=== PATIENT | female | born 1960 | race Caucasian/White ===

== ENCOUNTER → 2017-08-24 | Outpatient (CLI) | payer BC | LOC: M RAD 09:36 | DX: Z12.31 Encounter for screening mammogram for malignant neoplasm of breast (principal) | CPT/HCPCS: 77067 ==

== ENCOUNTER → 2017-11-09 | Outpatient (CLI) | payer BC ==
[2017-11-09 18:11] LABS: RUBELLA IgG QUALITATIVE IMMUNE (IMMUNE)
== END ==
LOC: M SMT 13:57
DX: Z01.84 Encounter for antibody response examination (principal)
CPT/HCPCS: 86762

== ENCOUNTER → 2018-08-22 | Outpatient (CLI) | payer BC ==
[2018-08-22 13:00] LABS: BASO # 0.1 10^3/uL (0.0-0.2); BASO % 0.8 % (0.0-1.0); EOS # 0.1 10^3/uL (0.0-0.50); EOS % 0.8 % (0.0-3.0); HEMATOCRIT 37.3 % (36.0-47.0); HEMOGLOBIN 11.6 g/dl (12.0-15.5); LYMPH # 1.5 10^3/uL (1.5-4.5); LYMPH % 15.9 % (24.0-44.0); MEAN CORPUSCULAR HEMOGLOBIN 19.9 pg (27.0-33.0); MEAN CORPUSCULAR HGB CONC 31.1 g/dl (32.0-36.5); MEAN CORPUSCULAR VOLUME 63.9 fl (80.0-96.0); MONO # 0.6 10^3/uL (0.0-0.8); MONO % 6.6 % (0.0-5.0); NEUTROPHILS # 6.9 10^3/uL (1.8-7.7); NEUTROPHILS % 75.6 % (36.0-66.0); PLATELET COUNT, AUTOMATED 236 10^3/uL (150-450); RED BLOOD COUNT 5.84 10^6/uL (4.00-5.40); WHITE BLOOD COUNT 9.2 10^3/uL (4.0-10.0)
[2018-08-22 13:26] LABS: ALBUMIN 3.7 GM/DL (3.2-5.2); ALT/SGPT 22 U/L (12-78); BILIRUBIN,TOTAL 0.5 MG/DL (0.2-1.0); BLOOD UREA NITROGEN 16 MG/DL (7-18); CALCIUM LEVEL 9.7 MG/DL (8.5-10.1); CARBON DIOXIDE LEVEL 28 MEQ/L (21-32); CHLORIDE LEVEL 103 MEQ/L (98-107); CREATININE FOR GFR 0.72 MG/DL (0.55-1.30); GLOMERULAR FILTRATION RATE > 60.0 (>51); GLUCOSE, FASTING 102 MG/DL (70-100); SODIUM LEVEL 139 MEQ/L (136-145)
== END ==
LOC: M LAB 11:43
PROVIDERS: ATTEND Obstetrics & Gynecology
DX: Z01.818 Encounter for other preprocedural examination (principal); C54.1 Malignant neoplasm of endometrium

== ENCOUNTER → 2018-10-07 | Outpatient (CLI) | payer BC ==
[~2018-10-07] MED LIST: COLA100C5 PO; DEXA4TA PO; LIDO2.5C15 EX; ONDA8TAB8 PO
--- NOTE | 2018-10-07 11:33 | REPMRS ---
Patient History The patient states she had a clinical breast exam in Jun 2018.Patient has history of endometrial cancer at age 57. Family history of breast cancer under age 50 in maternal aunt, breast cancer at age 50 or over in maternal aunt, breast cancer at age 50 or over in maternal aunt, unknown cancer at age 53 in mother. Took hormonal contraceptives for 2 years. 25 pound weight loss since last mammo. Digital Mammo Screening Bilat: October 07, 2018 - Exam #: [id number] Bilateral CC and MLO view(s) were taken. Technologist: Tammie Phillips, Technologist Prior study comparison: August 24, 2017, bilateral digital mammo screening bilat performed at [facility]. July 21, 2015, digital woman screen mammo, performed at [facility]. FINDINGS: The breast tissue is heterogeneously dense. This may lower the sensitivity of mammography. There has been no change in the appearance of the mammogram from the prior studies. There is a moderate amount of residual fibroglandular tissue which is fairly symmetric. There is no interval development of dominant mass, architectural distortion, or clustered microcalcification typical of malignancy. Scattered lymph nodes are seen in the axillae. There are scattered, small, benign calcifications of doubtful clinical significance. 3-D tomosynthesis shows no additional findings. No significant changes when compared with prior studies. Assessment: BI-RADS/ACR category 2 mammogram. Benign Findings. Recommendation Routine screening mammogram in 1 year (for women over age 40). This mammogram was interpreted with the aid of an FDA-approved computer-aided dectection system. A. Negative x-ray reports should not delay biopsy if a dominant or clinically suspicious mass is present. B. Four to eight percent of cancers are not identified by mammography. C. Adenosis and dense breast may obscure an underlying neoplasm. Electronically Signed By: Gurdeep Arango MD 10/07/18 [id number]
== END ==
LOC: M RAD 09:08
PROVIDERS: ATTEND Nurse Practitioner Women's Health
DX: Z12.31 Encounter for screening mammogram for malignant neoplasm of breast (principal); Z80.3 Family history of malignant neoplasm of breast; Z85.40 Personal history of malignant neoplasm of unspecified female genital organ

== ENCOUNTER → 2018-10-09 | Outpatient (CLI) | payer BC ==
[~2018-10-09] MED LIST changes: +CLINDAMYCIN 600 MG/50 ML PREMIX BAG As Ordered ONE; +LIDOCAINE 2% MDV 20 ML VIAL As Ordered ONE; +MIDAZOLAM INJ 2 MG/2 ML VIAL (J2250) As Ordered ONE; +VICO5TAB17 PO; +ceFAZolin 1GM INJ (J0690 PER 500MG) As Ordered ONE; +fentaNYL 100 MCG/2 ML INJECTION (J3010) As Ordered ONE
--- NOTE | 2018-10-30 08:55 | REPIR ---
DATE OF PROCEDURE: 10/09/2018 ATTENDING SURGEON: Dr. Deejay Daley ASSISTANTS: Suni Engel and Marilynn Hess. PREOPERATIVE DIAGNOSIS: Endometrial cancer with positive peritoneal washings. POSTOPERATIVE DIAGNOSIS: Endometrial cancer with positive peritoneal washings. PROCEDURE: Ultrasound-guided right internal jugular vein cannulation, fluoroscopic guided right internal jugular vein tunneled central venous catheter with subcutaneous port placement with a 24 cm length catheter using a Bard PowerPort. INDICATION: The patient is a 57-year-old female with endometrial cancer and peritoneal washings positive for metastatic cancer who requires access for chemotherapy. Risks, benefits and alternative treatment options were discussed with the patient. ANESTHESIA: Local with 20 mL of 2% lidocaine. FLUOROSCOPY TIME: 0.1 minutes. CONTRAST: None. COMPLICATIONS: None. DRAINS: None. SPECIMENS: None. ANTIBIOTICS: 600 mg of clindamycin. IMPLANT: Right internal jugular vein tunneled central venous catheter with subcutaneous port using a 24 cm Bard PowerPort. DESCRIPTION OF PROCEDURE: The patient was taken to the angiography suite, placed supine on the angiography room table and then prepped and draped in a standard surgical fashion. The right internal jugular vein was evaluated with ultrasound, noted to be widely patent, easily compressible and free of thrombus. Ultrasound was used to guide cannulation of the right internal jugular vein with real-time concurrent visualization of the entry of the needle into the right internal jugular vein with a hard copy image preserved. The right internal jugular vein was then sequentially dilated under fluoroscopic guidance and an introducer sheath positioned. The catheter was tunneled from the pocket created in the right chest brought out at the right internal jugular vein puncture site and advanced through the introducer sheath in position with the tip in the superior vena cava right atrial junction. The catheter was attached to the port, which was placed in the pocket. The port was accessed, noted to flush easily and aspirated easily, and then was flushed with heparinized saline. The incisions were then closed using #3-0 Monocryl in inverted interrupted fashion. Steri-Strips and dressings were applied. The patient tolerated the procedure well. All instrument, sponge and needle counts were correct at the end of case. There were no complications. Dr. Daley was present for and directed the entire case. The patient was transferred to the holding area and subsequent discharged in stable condition. RADIOLOGIC SUPERVISION INTERPRETATION: The final fluoroscopic image showed the catheter and port to be in good position and good alignment with no pneumo or hemothorax noted. Ultrasound of the right internal jugular vein showed the internal jugular vein to be widely patent, easily compressible and free of thrombus. Ultrasound was used to guide cannulation with real-time concurrent visualization of the entry of the needle into the right internal jugular vein with a hard copy image preserved.
== END | disposition home or self-care (01) ==
LOC: M IRPRO 07:04
PROVIDERS: ATTEND Internal Medicine Hematology & Oncology
DX: C54.1 Malignant neoplasm of endometrium (principal); C78.6 Secondary malignant neoplasm of retroperitoneum and peritoneum
CPT/HCPCS: 36561; 76937; 77001; C1788; C1894; J0690

== ENCOUNTER → 2019-03-28 | Outpatient (REF) | payer BC ==
[~2019-03-28] MED LIST changes: -CLINDAMYCIN 600 MG/50 ML PREMIX BAG As Ordered ONE; -LIDOCAINE 2% MDV 20 ML VIAL As Ordered ONE; -MIDAZOLAM INJ 2 MG/2 ML VIAL (J2250) As Ordered ONE; +SENN1TAB8 PO; -ceFAZolin 1GM INJ (J0690 PER 500MG) As Ordered ONE; -fentaNYL 100 MCG/2 ML INJECTION (J3010) As Ordered ONE
== END ==
LOC: M SFHCPLAZ 17:09
PROVIDERS: ATTEND Dermatology
DX: D49.2 Neoplasm of unspecified behavior of bone, soft tissue, and skin (principal)

== ENCOUNTER → 2019-10-27 | Outpatient (REF) | payer BC ==
[~2019-10-27] MED LIST changes: +LIDO2.5C15 TOP
== END ==
LOC: M LAB REF 16:17
PROVIDERS: ATTEND Obstetrics & Gynecology
DX: C54.1 Malignant neoplasm of endometrium (principal)

== ENCOUNTER → 2019-11-06 | Outpatient (CLI) | payer BC ==
[~2019-11-06] MED LIST changes: +AMOX500C PO; +GASTROGRAFIN SOLUTION 30ML (Q9963) As Ordered ONE; +ISOVUE-370 76% 100ML VIAL (Q9967) As Ordered ONE; +LEVO500T3 PO; +OMEP-221 PO
--- NOTE | 2019-11-06 19:36 | REP ---
CT chest with IV contrast: History: Endometrial carcinoma. Comparison exam is from August 04, 2019. CT contrast dose: 100 mL of intravenous Isovue 370. CT findings: Preliminary digital health care specialist radiograph is unremarkable. There is no evidence of pleural or pericardial effusion. No hilar or mediastinal mass or adenopathy is observed. There is a right-sided Yyegxy-N-Clld catheter with its tip in the superior vena cava. There is a granulomatous calcification again noted in the left lower lobe. A stable 4 mm fibronodular density is seen in the right lower lobe on page 70 of 108 in series 204 of today's study. This is felt to be unchanged from the August 04, 2019 study. No new pulmonary nodule is seen. No infiltrate or mass lesion is observed. No bony destructive lesion is appreciated. Impression: No active cardiopulmonary disease. Stable 4 mm right lower lobe nodule and old granuloma left lower lobe. Electronically Signed by Bishop Miguel MD 11/06/2019 08:49 P
--- NOTE | 2019-11-06 19:38 | REP ---
CT abdomen and pelvis with IV and oral contrast: History: Endometrial carcinoma. Comparison CT study is from August 04, 2019 and April 30, 2019. CT contrast dose: 100 mL of intravenous Isovue 370. CT findings: A small bilobed cyst is again noted in the left lobe of the liver, 1.6 cm in diameter. This is unchanged. There is a tiny subcentimeter cyst in the right lobe, also unchanged. No liver mass lesion is appreciated. Gallbladder is unremarkable. No splenic lesion is seen. No adrenal abnormalities observed. No abnormalities noted in the pancreas. The kidneys enhance symmetrically and are morphologically intact. A normal appendix seen in the right lower quadrant. Urinary bladder is intact. The uterus is surgically absent. No pelvic adenopathy or mass lesion is seen. No free fluid is noted. No abdominal wall defect is seen. No bony destructive lesion is seen. Impression: There is no evidence of abdominal or pelvic metastasis or adenopathy. Electronically Signed by Bishop Miguel MD 11/06/2019 08:49 P
== END ==
LOC: M RAD 14:53
PROVIDERS: ATTEND Obstetrics & Gynecology
DX: C54.1 Malignant neoplasm of endometrium (principal)
CPT/HCPCS: 71260; 74177; Q9963; Q9967

== ENCOUNTER → 2019-11-17 | Outpatient (CLI) | payer BC ==
[~2019-11-17] MED LIST changes: -GASTROGRAFIN SOLUTION 30ML (Q9963) As Ordered ONE; -ISOVUE-370 76% 100ML VIAL (Q9967) As Ordered ONE; +LIDOCAINE 1% MDV 20ML VIAL As Ordered ONE; +MIDAZOLAM INJ 2MG/2ML VIAL (J2250 PER 1MG) As Ordered ONE; +SENN-80 PO; -SENN1TAB8 PO; +diphenhydrAMINE 50MG/ML VIAL (J1200) As Ordered ONE; +fentaNYL 100 MCG/2 ML INJECTION (J3010) As Ordered ONE
--- NOTE | 2019-11-17 13:55 | IRHP ---
[facility] IR Pre-Procedure H & P General Date of Service: Nov 17, 2019 Procedure: Same Day Surgery Interval History and Physical I have seen the patient and reviewed last H & P performed within 30 days. There is no significant interval change. History of Present Illness Chief Complaint The patient is a 59-year-old female admitted with a reason for visit of Endometrial Ca-No Longer Needed. PRE-PROCEDURE DIAGNOSIS: endometrial cancer HEART: karen rate. LUNGS: normal breathing at rest. ASA Classification ASA Classification: II-Mild systemic disease Mallampati Score: II NPO: Yes Problems with prior sedation: No Obstructive Sleep Apnea: No Plan moderate sedation Allergies Coded Allergies: Sulfa (Sulfonamide Antibiotics) (Verified Allergy, Unknown, 10/31/18) cefadroxil (Verified Allergy, Unknown, 08/29/19) HIVES Home Medications Scheduled Omeprazole (Omeprazole), 40 MG PO BID, (Reported) Discontinued Medications Amoxicillin (Amoxicillin), 2 CAP PO BID, (Reported) Discontinued Reason: Pt states not taking Levofloxacin (Levofloxacin), 500 MG PO DAILY, (Reported) Discontinued Reason: Pt states not taking Lidocaine/Prilocaine (Lidocaine-Prilocaine Cream), 1 DOSE TOP ASDIRECTED Discontinued Reason: Pt states not taking VS, I&O, 24H, Fishbone Vital Signs/I&O Vital Signs Date Time Temp Pulse Resp B/P (MAP) Pulse Ox O2 Delivery O2 Flow Rate FiO2 11/17/19 13:49 98.6 72 16 100 Room Air DESHAWN SONI MD Nov 17, 2019 13:55
[2019-11-17 16:24] VITALS: BP 114/64
--- NOTE | 2019-11-18 08:55 | POST-OPPD ---
Postoperative Procedure Note Date Of Procedure: Nov 17, 2019 Time Of Procedure: 14:19 PREOPERATIVE DIAGNOSIS: endometrial cancer. treatment complete POSTOPERATIVE DIAGNOSIS: same FINDINGS: right sided port PROCEDURE: port removal SURGEON: edgardo ANESTHESIA: mod sed ESTIMATED BLOOD LOSS: < 5 ml COMPLICATIONS: none POSTOPERATIVE CONDITION: stable DESHAWN SONI MD Nov 18, 2019 08:55
--- NOTE | 2019-11-20 11:22 | REP ---
IR port removal. IR moderate sedation. Clinical information: Endometrial cancer. Treatment complete. Physician: Dr. Darnell. Procedure: The patient was advised of the benefits, risks and alternatives of the procedure and informed consent was obtained. The time-out was performed with verification of the patient's name, MRN, site of procedure and type of procedure to be performed. The patient was positioned in the supine position on the angiographic table. The site was prepped and draped in the usual sterile fashion. Moderate sedation was performed by the physician including the presence of an independent trained observer who assisted and monitored the patient's level of consciousness and physiologic status. Following the administration of Fentanyl and Versed, the physician spent 30 minutes of continuous face to face time with the patient. A edging machine feeder radiograph reveals a right sided port in place. The soft tissues overlying the port pocket were anesthetized with lidocaine. An incision was made over the port using an 15 blade scalpel in the location of the prior incision. The catheter was then freed with blunt dissection and extracted. Pressure was applied to obtain hemostasis. The port was then freed with blunt dissection and subsequently removed. There are no signs of infection. After hemostasis was achieved, the incision was closed with interrupted deep 2-0 Vicryl sutures and subcuticular Monocryl sutures. The site was cleansed and covered with a sterile dressing. A follow-up radiograph demonstrates complete removal of the port. The patient tolerated the procedure well and was returned to PRU in stable condition. EBL: < 5 ml. Complications: None. Conclusion: 1. Successful explant of a right sided port. 2. No signs of infection. Thank you this referral. Electronically Signed by Ev Darnell MD 11/20/2019 11:21 A
== END ==
LOC: M IRPRO 13:33
PROVIDERS: ATTEND Internal Medicine Hematology & Oncology
DX: Z45.2 Encounter for adjustment and management of vascular access device (principal); C54.1 Malignant neoplasm of endometrium; Z79.899 Other long term (current) drug therapy; Z88.1 Allergy status to other antibiotic agents; Z88.2 Allergy status to sulfonamides
CPT/HCPCS: 36590; 99152; 99153; J1200; J1644; J2250; J3010

== ENCOUNTER → 2020-01-12 | Outpatient (CLI) | payer BC ==
[~2020-01-12] MED LIST changes: -LIDOCAINE 1% MDV 20ML VIAL As Ordered ONE; -MIDAZOLAM INJ 2MG/2ML VIAL (J2250 PER 1MG) As Ordered ONE; -diphenhydrAMINE 50MG/ML VIAL (J1200) As Ordered ONE; -fentaNYL 100 MCG/2 ML INJECTION (J3010) As Ordered ONE
[2020-01-12 09:13] LABS: BASO # 0.1 10^3/uL (0.0-0.2); BASO % 1.2 % (0.0-1.0); EOS # 0.2 10^3/uL (0.0-0.5); HEMATOCRIT 33.7 % (36.0-47.0); HEMOGLOBIN 10.5 g/dl (12.0-15.5); LYMPH # 0.8 10^3/uL (1.5-5.0); LYMPH % 19.1 % (24.0-44.0); MEAN CORPUSCULAR HEMOGLOBIN 21.4 pg (27.0-33.0); MEAN CORPUSCULAR HGB CONC 31.2 g/dl (32.0-36.5); MEAN CORPUSCULAR VOLUME 68.6 fl (80.0-96.0); MONO # 0.4 10^3/uL (0.0-0.8); MONO % 9.2 % (0.0-5.0); NEUTROPHILS # 2.8 10^3/uL (1.5-8.5); PLATELET COUNT, AUTOMATED 155 10^3/uL (150-450); RED BLOOD COUNT 4.91 10^6/uL (4.00-5.40); WHITE BLOOD COUNT 4.3 10^3/uL (4.0-10.0)
[2020-01-12 09:22] LABS: INR 1.07; PROTHROMBIN TIME 13.6 SECONDS (11.8-14.0)
[2020-01-12 09:23] LABS: PARTIAL THROMBOPLASTIN TIME 33.4 SECONDS (25.0-38.4)
[2020-01-12 09:44] LABS: PERCENT SATURATION 33.8 % (13.2-45.0)
[2020-01-13 10:11] LABS: CA 125 4.3 U/ML (<30.2)
== END ==
LOC: M LAB 07:57
PROVIDERS: ATTEND Internal Medicine Hematology & Oncology
DX: C54.1 Malignant neoplasm of endometrium (principal)

== ENCOUNTER → 2020-01-12 | Outpatient (CLI) | payer BC ==
[2020-01-12 09:10] LABS: BASO # 0.1 10^3/uL (0.0-0.2); BASO % 1.1 % (0.0-1.0); EOS # 0.2 10^3/uL (0.0-0.5); EOS % 4.6 % (0.0-3.0); HEMATOCRIT 33.5 % (36.0-47.0); HEMOGLOBIN 10.5 g/dl (12.0-15.5); LYMPH # 0.9 10^3/uL (1.5-5.0); LYMPH % 19.5 % (24.0-44.0); MEAN CORPUSCULAR HEMOGLOBIN 21.5 pg (27.0-33.0); MEAN CORPUSCULAR HGB CONC 31.3 g/dl (32.0-36.5); MEAN CORPUSCULAR VOLUME 68.5 fl (80.0-96.0); MONO # 0.4 10^3/uL (0.0-0.8); MONO % 8.5 % (0.0-5.0); NEUTROPHILS # 2.9 10^3/uL (1.5-8.5); NEUTROPHILS % 66.1 % (36.0-66.0); PLATELET COUNT, AUTOMATED 163 10^3/uL (150-450); RED BLOOD COUNT 4.89 10^6/uL (4.00-5.40); WHITE BLOOD COUNT 4.4 10^3/uL (4.0-10.0)
[2020-01-12 09:40] LABS: BLOOD UREA NITROGEN 15 MG/DL (7-18); CALCIUM LEVEL 9.7 MG/DL (8.5-10.1); CARBON DIOXIDE LEVEL 27 MEQ/L (21-32); CHLORIDE LEVEL 106 MEQ/L (98-107); CREATININE FOR GFR 0.76 MG/DL (0.55-1.30); GLOMERULAR FILTRATION RATE > 60.0 (>51); GLUCOSE, FASTING 90 MG/DL (70-100); POTASSIUM SERUM 4.5 MEQ/L (3.5-5.1); SODIUM LEVEL 140 MEQ/L (136-145)
[2020-01-13 10:17] LABS: CA 125 4.4 U/ML (<30.2)
== END ==
LOC: M LAB 07:53
PROVIDERS: ATTEND Obstetrics & Gynecology
DX: C54.1 Malignant neoplasm of endometrium (principal)

== ENCOUNTER → 2020-01-14 | Outpatient (CLI) | payer BC ==
[~2020-01-14] MED LIST changes: +FERR325T3 PO; +GASTROGRAFIN SOLUTION 30ML (Q9963) As Ordered ONE; +ISOVUE-370 76% 100ML VIAL As Ordered ONE; +OMEP10CASR PO
--- NOTE | 2020-01-14 15:13 | REP ---
Clinical: History of endometrial carcinoma. Technique: Axial contrast enhanced images from the thoracic inlet to the upper abdomen (followed by CT of the abdomen and pelvis) with coronal and sagittal re-formations using 100 ml Isovue 370 intravenous contrast material. Comparison: 11/06/2019. Findings: The bilateral lung brewer are relatively well aerated and clear. Calcified granuloma in the left lower lobe and 4 mm noncalcified nodule along the periphery of the right lower lobe (image 76) remain stable. No new consolidation, significant nodule, or mass lesion. No pleural effusion. No pneumothorax. Tracheobronchial tree is patent. No significant adenopathy identified. Thoracic aorta, pulmonary vasculature, and heart/pericardium are normal. Limited upper abdomen demonstrates normal bilateral adrenal glands. Surrounding musculoskeletal structures are intact without focal osseous abnormality. Impression: 1. Stable right lower lobe nodule and left lower lobe granuloma. 2. No acute mediastinal or pleuroparenchymal process. Specifically, no evidence for metastatic disease. Electronically Signed by Dieter Kelly MD 01/14/2020 03:04 P
--- NOTE | 2020-01-14 15:54 | REP ---
Clinical: History of endometrial carcinoma. Technique: Axial contrast enhanced images from the lung bases to the pubic symphysis using oral (per protocol) and 100 ml Isovue 370 intravenous contrast material with coronal and sagittal re-formations. Delayed images of the abdomen obtained. Comparison: 11/06/2019. Findings: Liver, spleen, pancreas, gallbladder, bilateral adrenal glands and kidneys are normal. The enteric system is without obstruction or acute inflammatory process. Normal terminal ileum and appendix are identified in the right lower quadrant. Pelvis demonstrates normal bladder and evidence of prior hysterectomy. No ascites. No adenopathy. No free air. Abdominal aorta and vasculature appear normal. Surrounding musculoskeletal structures are intact without acute osseous abnormality. Impression: No acute abdominopelvic pathology appreciated. Specifically no recurrence or metastatic disease noted. Electronically Signed by Dieter Kelly MD 01/14/2020 03:46 P
== END ==
LOC: M RAD 08:32
PROVIDERS: ATTEND Obstetrics & Gynecology
DX: C54.1 Malignant neoplasm of endometrium (principal)
CPT/HCPCS: 71260; 74177; Q9963; Q9967

== ENCOUNTER → 2021-02-03 | Outpatient (CLI) | payer BC ==
[~2021-02-03] MED LIST changes: +FERR325T81 PO; +LIDO1CRE42 EX; +LIDO1CRE42 TOP; -LIDO2.5C15 EX; -LIDO2.5C15 TOP
--- NOTE | 2021-02-03 11:00 | REP ---
INDICATION: ENDOMETRIAL CA COMPARISON: 01/14/2020 TECHNIQUE: Axial contrast enhanced images from the thoracic inlet to the upper abdomen with coronal and sagittal reformations using 100 ml Isovue 370 intravenous contrast [address]. [address] examination was performed using the following dose reduction techniques: Automated exposure control, adjustment of mA and/or kv according to the patient's size, and use of iterative reconstruction technique. FINDINGS: The bilateral lung brewer are well aerated and clear. No consolidation, suspicious nodule or mass. No pleural effusion. No pneumothorax. Stable calcified granuloma in the posterior left lower lobe and small subpleural 3 mm noncalcified nodule in the right lower lobe are unchanged. No adenopathy. Tracheobronchial tree is patent. Further evaluation of the mediastinum demonstrates normal thoracic aorta, pulmonary vasculature, and heart/pericardium. Surrounding musculoskeletal structures intact and without acute osseous abnormality. IMPRESSION: No acute mediastinal or pleuroparenchymal process. No evidence for metastatic disease. Stable noncalcified and calcified solitary lower lobe nodules. <Electronically signed by Dieter Kelly > 02/03/21 [id number]
--- NOTE | 2021-02-03 11:05 | REP ---
INDICATION: ENDOMETRIAL CA. COMPARISON: 01/14/2020 TECHNIQUE: Axial contrast-enhanced images from the lung bases to the pubic symphysis using oral and 100 cc Isovue 370 intravenous contrast material. Precontrast and delayed images of the abdomen along with coronal and sagittal reformations obtained.. This CT examination was performed using the following dose reduction techniques: Automated exposure control, adjustment of mA and/or kv according to the patient's size, and the use of iterative reconstruction technique. FINDINGS: Liver, spleen, pancreas, gallbladder, bilateral adrenal glands and kidneys are normal. The enteric system including stomach, small, and large bowel appears normal. No evidence for obstruction or acute inflammatory process. Pelvis demonstrates normal bladder and evidence for prior hysterectomy. No pelvic fluid, adenopathy or evidence for local recurrence noted. No ascites. No free air. No intraperitoneal or retroperitoneal adenopathy. Abdominal aorta and vasculature appear normal. Musculoskeletal structures are intact and without acute osseous abnormality. IMPRESSION: No acute abdominopelvic pathology appreciated. No evidence for recurrence or metastatic disease. <Electronically signed by Dieter Kelly > 02/03/21 [id number]
== END ==
LOC: M RAD 08:27
PROVIDERS: ATTEND Obstetrics & Gynecology
DX: C54.1 Malignant neoplasm of endometrium (principal)

== ENCOUNTER → 2024-04-08 | Outpatient (CLI) | payer OTHER ==
[~2024-04-08] MED LIST changes: -GASTROGRAFIN SOLUTION 30ML (Q9963) As Ordered ONE; +GASTROGRAFIN SOLUTION 30ML As Ordered ONE; +KP F1200 PO; +LEVO1TAB39 PO; -LEVO500T3 PO; -LIDO1CRE42 EX; -LIDO1CRE42 TOP; +LIDO30CR18 EX; +LIDO30CR18 TOP; +MV-M1TAB13 PO; -OMEP-221 PO; +OMEP40CA5 PO; +ONDA-284 PO; -ONDA8TAB8 PO; +SENN-186 PO; -SENN-80 PO
== END ==
LOC: M RAD 12:23
PROVIDERS: ATTEND Obstetrics & Gynecology
DX: C54.1 Malignant neoplasm of endometrium (principal)
CPT/HCPCS: 74177; Q9963; Q9967

== ENCOUNTER → 2024-10-09 | Outpatient (CLI) | payer OTHER ==
[~2024-10-09] MED LIST changes: -GASTROGRAFIN SOLUTION 30ML As Ordered ONE; -ISOVUE-370 76% 100ML VIAL As Ordered ONE
== END ==
LOC: M WUC 11:52
PROVIDERS: ATTEND Nurse Practitioner Adult Health
DX: M54.2 Cervicalgia (principal)